=== PATIENT | female | born 1985 | race Caucasian/White ===

== ENCOUNTER → 2022-02-25 11:37 | Outpatient (CLI) | payer MEDICAID, SELFPAY ==
--- NOTE | 2022-02-25 11:42 | XR_ITS ---
FINAL REPORT CLINICAL HISTORY: chest pain, patient states irregular heartbeat FINDINGS: A single view of the chest was obtained. The heart is normal in size. The mediastinum is unremarkable. The lungs are clear. There is no pleural effusion. There is no pneumothorax. There is no acute osseous abnormality. IMPRESSION: No acute cardiopulmonary process. Reviewed, Interpreted and Dictated by Sandip Adams III, MD Transcribed by Julianna Soto Authenticated by Sandip Adams III, MD on 02/25/2022 01:37:00 PM [facility]
[2022-02-25 12:39] LABS: Basophils # 0.1 K/mm3 (0-0.2); Basophils % 1.4 % (0.1-2.0); Eosinophils # 0.1 K/mm3 (0.0-0.4); Eosinophils % 1.3 % (0.1-12.0); Hematocrit 43.6 % (37.0-47.0); Hemoglobin 14.4 g/dL (12.2-16.2); Lymphocytes # 2.4 K/mm3 (0.7-4.5); Lymphocytes % 25.1 % (10-50); Mean Corpuscular HGB Conc 32.9 g/dL (31.8-35.4); Mean Corpuscular Hemoglobin 30.6 pg (27.0-31.2); Mean Corpuscular Volume 93.2 fl (81-99); Mean Platelet Volume 8.2 fl (7.4-10.4); Monocytes # 0.5 K/mm3 (0.1-1.0); Monocytes % 4.9 % (1.7-9.3); Neutrophils # 6.5 K/mm3 (1.8-7.8); Neutrophils % 67.3 % (37.0-80.0); Platelet Count 267 K/mm3 (142-424); Red Blood Count 4.69 M/mm3 (4.20-5.40); White Blood Count 9.6 K/mm3 (4.8-10.8)
[2022-02-25 13:11] LABS: Chloride 105 mmol/L (98-107); Potassium 4.5 mmoL/L (3.5-5.1); Sodium 138 mmol/L (136-145)
[2022-02-25 13:13] LABS: Bilirubin,Unconjugated 0.4 mg/dL (0.0-1.1); Blood Urea Nitrogen 12 mg/dl (7-17); Estimated Glomerular Filt Rate 72 ml/min (>60); GFR (African American) 87 ML/MIN (>60)
[2022-02-25 13:14] LABS: Alanine Aminotransferase 25 U/L (12-78); Albumin Level 4.1 g/dl (3.5-5.0); Alkaline Phosphatase 81 U/L (38-126); Anion Gap 6.5 mEq/L (5-15); Aspartate Amino Transferase 36 U/L (14-36); Bilirubin,Direct 0.1 mg/dl (0.0-0.4); Bilirubin,Indirect 0.4 mg/dL (0.0-0.9); Bilirubin,Total 0.5 mg/dl (0.2-1.3); Calcium 8.5 mg/dl (8.4-10.2); Carbon Dioxide 31 mmol/L (22.0-30.0); Chol/HDL Ratio 2.2 (1-3.5); Cholesterol 127 mg/dl (140-200); Glucose 64 mg/dl (74-100); HDL Cholesterol 59 mg/dl (40-60); Total Protein,Serum 7.2 g/dl (6.3-8.2); Triglycerides 171 mg/dl (30-150); VLDL Cholesterol 34 mg/dL (0-40)
[2022-02-25 13:25] LABS: Direct LDL Cholesterol 44.88 mg/dL (100-129)
[2022-02-25 13:41] LABS: Free Thyroxine Index 1.6 ug/dL (5.93-13.13); T4 (Thyroxine) 6.1 ug/dl (5.53-11.0); Triiodothryronine (T3) Uptake 27 % (23.5-40.5)
[2022-02-25 13:55] LABS: Thyroid Stimulating Hormone 8.88 uIU/mL (0.465-4.68)
== END ==
PROVIDERS: PCP Nurse Practitioner; Visit Provider Physician Assistant
DX: R06.00 Dyspnea, unspecified (principal); R07.89 Other chest pain; R00.2 Palpitations; E03.9 Hypothyroidism, unspecified; E78.5 Hyperlipidemia, unspecified; Z87.891 Personal history of nicotine dependence
CPT/HCPCS: 36415; 71045; 80048; 80061; 80076; 84436; 84443; 84479; 85025; 93225; 93226

== ENCOUNTER → 2022-02-26 10:42 | Outpatient (CLI) | payer OTHER, MEDICAID, SELFPAY ==
--- NOTE | 2022-02-26 10:52 | US_ITS ---
FINAL REPORT TECHNIQUE: Sonographic images of the thyroid were obtained. CLINICAL HISTORY: HYPOTHYROIDISM, UNSPECIFIED FINDINGS: THYROID ULTRASOUND The thyroid is enlarged and heterogeneous. The right thyroid gland measures 1.6 x 6.0 x 2.3 cm. No dominant mass is seen. The left thyroid gland measures 1.5 x 5.2 x 2.2 cm. A nodule in the left upper thyroid lobe measures 10 x 9 x 7 mm. It is solid and isoechoic consistent with a TR 3 nodule. A second nodule in the upper lobe measures 12 x 8 x 7 mm. It is solid and hyperechoic consistent with a TR 3 nodule. A nodule in the lower left lobe measures 8 x 7 x 5. It is solid and hyperechoic consistent with a TR 3 nodule. IMPRESSION: Enlarged heterogeneous thyroid may represent a goiter. Several small left thyroid lobe nodules as described. Reviewed, Interpreted and Dictated by Sandip Adams III, MD Transcribed by Julianna Soto Authenticated by Sandip Adams III, MD on 02/26/2022 03:00:56 PM [facility]
== END ==
PROVIDERS: PCP Nurse Practitioner; Visit Provider Nurse Practitioner
DX: E03.9 Hypothyroidism, unspecified (principal)
CPT/HCPCS: 76536